=== PATIENT | female | born 1945 | race Caucasian/White ===

== ENCOUNTER 2021-02-23 23:02 | Observation (INO) ==
[2021-02-24 00:23] LABS: Basophils # 0.1 K/mcL (0.0-0.2); Basophils % 1.1 %; Eosinophils # 0.3 K/mcL (0.0-0.6); Eosinophils % 2.5 %; Hemoglobin 14.6 g/dL (11.5-15.4); Immature Granulocytes % 0.7 % (0-4); Lymphocytes # 3.4 K/mcL (0.6-4.6); Lymphocytes % 32.9 %; Mean Corpuscular HGB Conc 35.6 g/dL (31.6-35.5); Mean Corpuscular Hemoglobin 31.2 pg (28.0-33.3); Mean Corpuscular Volume 87.6 fL (83.0-100.0); Mean Platelet Volume 9.9 fL (9.4-12.4); Monocytes # 0.9 K/mcL (0.0-1.3); Monocytes % 8.9 %; Neutrophils # 5.7 K/mcL (1.6-8.9); Platelet Count 282 K/mcL (140-400); Red Blood Count 4.68 M/mcL (3.82-4.97); Red Cell Distribution Width 13.2 % (11.5-14.5); Segmented Neutrophils % 53.9 %; White Blood Count 10.5 K/mcL (4.3-11.1)
[2021-02-24 01:21] LABS: BUN/Creatinine Ratio 16 (6-26); Blood Urea Nitrogen 20 mg/dL (8-23); Calcium 9.2 mg/dL (8.6-10.3); Carbon Dioxide 25 mEq/L (23-29); Chloride 94 mEq/L (98-107); Glucose 139 mg/dL (70-105); Osmolality,Calculated 275 (280-300); Potassium 2.6 mEq/L (3.5-5.1); Sodium 130 mEq/L (136-145); Thyroid Stimulating Hormone 1.447 mcIU/mL (0.340-5.600); Troponin I < 0.03 ng/mL (< 0.04); eGFR For African Americans 50 (> 60); eGFR For Non-African Americans 41 (> 60)
[2021-02-24] MEDS ORDERED: 0.9 % Sodium Chloride 1,000 ML IVC ONE (01:28)
[2021-02-24] MEDS ORDERED: Potassium Chloride Elixir 20 MEQ/15 ML UDC PO ONE (01:28)
[2021-02-24] MEDS ORDERED: Ondansetron 4 MG/2 ML VIAL IVP PRN (04:03)
[2021-02-24] MEDS ORDERED: Naloxone 0.4 MG/ML INJ IVP PRN (04:03)
[2021-02-24] MEDS ORDERED: Melatonin 3 MG TABLET PO PRN (04:03)
[2021-02-24] MEDS ORDERED: Acetaminophen 325 MG TABLET PO PRN (04:03)
[2021-02-24 04:12] VITALS: TEMP 97.5
[2021-02-24] MEDS ORDERED: 0.9 % Sodium Chloride 1,000 ML IVC SCH (04:15)
[2021-02-24] MEDS ORDERED: Perflutren Lipid Microsphere 1.3 ML in 0.9 % Sodium Chloride 8.7 ML IVP PRN (05:07)
[2021-02-24] MEDS ORDERED: *HR* Heparin 5,000 UNIT/ML VIAL SQ SCH (06:00)
[2021-02-24 06:01] LABS: Hematocrit 37.9 % (35.3-44.9); Mean Corpuscular HGB Conc 33.5 g/dL (31.6-35.5); Mean Corpuscular Hemoglobin 29.7 pg (28.0-33.3); Mean Corpuscular Volume 88.6 fL (83.0-100.0); Mean Platelet Volume 8.8 fL (9.4-12.4); Platelet Count 201 K/mcL (140-400); Red Blood Count 4.28 M/mcL (3.82-4.97); Red Cell Distribution Width 13.3 % (11.5-14.5); White Blood Count 8.2 K/mcL (4.3-11.1)
[2021-02-24 06:04] LABS: Hemoglobin 12.7 g/dL (11.5-15.4)
[2021-02-24] MEDS ORDERED: 0.9 % Sodium Chloride 250 ML ONE (06:16)
[2021-02-24] MEDS ORDERED: 0.9 % Sodium Chloride 500 ML ONE (06:43)
[2021-02-24 06:56] VITALS: BP 130/71; PULSE 67; O2SAT 97
[2021-02-24 07:09] LABS: Albumin 3.7 g/dL (3.5-5.7); Albumin/Globulin Ratio 2.5 (1.1-2.2); Bilirubin,Total 0.7 mg/dL (0.3-1.0); Calcium 8.3 mg/dL (8.6-10.3); Globulin 1.5 g/dL (2.4-3.5); Potassium 3.7 mEq/L (3.5-5.1); Total Protein 5.2 g/dL (6.4-8.9)
[2021-02-24] MEDS ORDERED: ALPRAZolam 0.5 MG TABLET PO PRN (09:40)
[2021-02-24] MEDS ORDERED: carvediloL 25 MG TABLET PO SCH (09:45)
[2021-02-24] MEDS ORDERED: FLU Vac QV 21-22 (6Month+)/PF 0.5 ML SYRINGE IM ONE (11:30)
== END 2021-02-24 12:20 | disposition home or self-care (01) ==
LOC: 3BNU 23:02 → EMEROOARM 23:02 → 3BNU 02-24 03:43
PROVIDERS: ADMIT Internal Medicine; ATTEND Internal Medicine